=== PATIENT | female | born 1980 | race Caucasian/White ===

== ENCOUNTER → 2018-12-21 | Outpatient (CLI) | payer OTHER | LOC: FIMAGING 11:40 | PROVIDERS: ATTEND Nurse Practitioner Women's Health | DX: Z12.31 Encounter for screening mammogram for malignant neoplasm of breast (principal); Z91.89 Other specified personal risk factors, not elsewhere classified; Z80.3 Family history of malignant neoplasm of breast; R92.8 Other abnormal and inconclusive findings on diagnostic imaging of breast ==

== ENCOUNTER → 2019-01-06 | Outpatient (CLI) | payer OTHER | LOC: FIMAGING 12:55 | DX: Z91.89 Other specified personal risk factors, not elsewhere classified (principal) ==